=== PATIENT | male | born 1995 | race Caucasian/White ===

== ENCOUNTER 2018-04-27 07:28 | Emergency (ER) | payer SELFPAY ==
[~2018-04-27] VITALS: Ht 170.2 cm; Wt 68.0 kg
[2018-04-27 07:36] VITALS: BP 122/88
[2018-04-27] MEDS ORDERED: hydrOXYzine HCL 25 MG TAB PO ONE (08:10)
[2018-04-27] MEDS ORDERED: LORazepam 1 MG TAB PO ONE (08:10)
[2018-04-27 09:24] VITALS: BP 115/79
[2018-04-27 09:38] LABS: BARBITURATE, URINE NEG. ng/ml (NEG <=200); BENZODIAZEPINE, URINE NEG. ng/mL (NEG <=200); CANNABINOID, URINE POS. ng/mL (NEG <=50); COCAINE, URINE NEG. ng/mL (NEG <=300); OPIATE, URINE NEG. ng/mL (NEG <=2000); PHENCYCLIDINE SCREEN,URINE NEG. ng/mL (NEG <=25)
== END 2018-04-27 09:24 | disposition home or self-care (01) ==
LOC: MED 07:28
DX: F15.10 Other stimulant abuse, uncomplicated (principal); F12.10 Cannabis abuse, uncomplicated; F60.0 Paranoid personality disorder
CPT/HCPCS: 80305; 99283

== ENCOUNTER 2018-04-27 16:36 | Emergency (ER) | payer SELFPAY ==
[~2018-04-27] VITALS: Ht 162.6 cm; Wt 78.0 kg
[2018-04-27 16:40] VITALS: BP 139/111
[2018-04-27 17:34] VITALS: BP 135/104
== END 2018-04-27 17:34 | disposition home or self-care (01) ==
LOC: MED 16:36
DX: F15.10 Other stimulant abuse, uncomplicated (principal); F41.9 Anxiety disorder, unspecified; F12.10 Cannabis abuse, uncomplicated; F48.9 Nonpsychotic mental disorder, unspecified; R46.89 Other symptoms and signs involving appearance and behavior
CPT/HCPCS: 99283